=== PATIENT | female | born 1955 | race Caucasian/White ===

== ENCOUNTER → 2023-11-11 15:07 | Outpatient (REF) | payer BC, SELFPAY ==
[2023-11-20 04:08] LABS: HPV Genotype 16 Not Detected; HPV Genotype 18 Not Detected; HPV, High Risk Not Detected; HPV, High Risk Source Cervical
== END ==
LOC: CPAP 15:07
PROVIDERS: ATTENDING PHYSICIAN Obstetrics & Gynecology
DX: Z01.419 Encounter for gynecological examination (general) (routine) without abnormal findings (principal); Z11.51 Encounter for screening for human papillomavirus (HPV)
CPT/HCPCS: 87624; G0123

== ENCOUNTER → 2024-01-29 16:08 | Outpatient (REF) | payer BC, SELFPAY ==
[2024-01-29 17:30] LABS: % Basophils 0.8 % (0-2); % Immature Granulocytes 0.3 % (0-0.5); % Lymphocytes 22.5 % (20.5-51.1); % Monocytes 7.1 % (1.7-9.3); % Neutrophils 65.3 % (42.2-75.2); Absolute Basophils 0.1 10^3/uL (0-0.2); Absolute Eosinophils 0.3 10^3/uL (0-0.7); Absolute Lymphocytes 1.6 10^3/uL (1.2-3.4); Absolute Monocytes 0.5 10^3/uL (0.1-0.6); Absolute Neutrophils 4.8 10^3/uL (1.4-6.5); Hematocrit 36.5 % (37.0-47.0); Hemoglobin 11.8 g/dL (12.0-16.0); Mean Corp Hgb Conc. 32.3 g/dL (33.0-37.0); Mean Corpuscular Hgb 28.6 pg (27.0-31.0); Mean Corpuscular Volume 88.6 fL (81.0-99.0); Mean Platelet Volume 11.6 fL (7.4-10.4); Nucleated Red Blood Cells % 0 %; Platelet Count 274 10^3/uL (130-400); Red Blood Cell Count 4.12 10^6/uL (4.20-5.40); Red Cell Dist. Width 12.5 % (11.5-14.5); White Blood Cell Count 7.3 10^3/uL (4.8-10.8)
[2024-01-29 17:49] LABS: Urine Protein 29 mg/dl
[2024-01-29 17:50] LABS: Blood Urea Nitrogen 31 mg/dl (7-17); Calcium 10.2 mg/dl (8.4-10.2); Carbon Dioxide 27 mmol/L (22-30); Chloride 100 mmol/L (98-107); Glucose 102 mg/dl (70-99); Iron 80 ug/dl (37-170); Potassium 4.7 mmol/L (3.5-5.1); Sodium 135 mmol/L (135-145); eGFR 28.41
[2024-01-29 18:00] LABS: Percent Saturation 20 % (20-50); Total Iron Binding Capacity 391 ug/dl (265-497)
[2024-01-29 18:02] LABS: Protein/creatinine Ratio 0.9
[2024-01-31 09:53] LABS: Erythropoietin (EPO) 5 mU/mL (4-27)
== END ==
LOC: REG 16:08
PROVIDERS: ATTENDING PHYSICIAN Specialist; FAMILY PHYSICIAN Family Medicine
DX: N18.32 Chronic kidney disease, stage 3b (principal); Z86.39 Personal history of other endocrine, nutritional and metabolic disease
CPT/HCPCS: 36415; 80048; 82570; 82668; 82728; 83540; 83550; 84156; 85025

== ENCOUNTER → 2024-08-03 15:25 | Outpatient (REF) | payer BC, SELFPAY | LOC: WDC 15:25 | PROVIDERS: ATTENDING PHYSICIAN Family Medicine | DX: Z12.31 Encounter for screening mammogram for malignant neoplasm of breast (principal) | CPT/HCPCS: 77063; 77067 ==

== ENCOUNTER → 2025-01-26 06:20 | Outpatient (REF) | payer BC, SELFPAY ==
[2025-01-26 07:33] LABS: Hematocrit 35.2 % (37.0-47.0); Hemoglobin 11.4 g/dL (12.0-16.0)
[2025-01-26 08:05] LABS: ALT (SGPT) 13 U/L (0-35); AST (SGOT) 18 U/L (14-36); Albumin 4.8 g/dl (3.5-5.0); Alkaline Phosphatase 56 U/L (38-126); Blood Urea Nitrogen 49 mg/dl (7-17); Calcium 10.1 mg/dl (8.4-10.2); Carbon Dioxide 25 mmol/L (22-30); Chloride 101 mmol/L (98-107); Glucose 89 mg/dl (70-99); Phosphorus 4.5 mg/dl (2.5-4.5); Potassium 4.8 mmol/L (3.5-5.1); Sodium 140 mmol/L (135-145); Total Bilirubin 0.4 mg/dl (0.2-1.3); Total Protein 7.3 g/dl (6.3-8.2); eGFR 25.04
[2025-01-26 08:32] LABS: Protein/creatinine Ratio 0.4; Urine Protein 39 mg/dl
[2025-01-28 09:41] LABS: Intact PTH 40.5 pg/ml (13.6-85.8)
== END ==
LOC: REG 06:20
PROVIDERS: ATTENDING PHYSICIAN Specialist; FAMILY PHYSICIAN Family Medicine
DX: N18.32 Chronic kidney disease, stage 3b (principal)
CPT/HCPCS: 36415; 80053; 82570; 83970; 84100; 84156; 85014; 85018

== ENCOUNTER 2025-02-24 06:14 | Day surgery (SDC) | payer BC, SELFPAY | END 2025-02-24 12:10 | disposition home or self-care (01) | LOC: GI 06:14 | PROVIDERS: ATTENDING PHYSICIAN Specialist | DX: Z12.11 Encounter for screening for malignant neoplasm of colon (principal); K57.30 Diverticulosis of large intestine without perforation or abscess without bleeding; D12.0 Benign neoplasm of cecum; D12.3 Benign neoplasm of transverse colon; Z86.0101 Personal history of adenomatous and serrated colon polyps | CPT/HCPCS: 45385; 45380; 88305 ==

== ENCOUNTER → 2025-03-14 15:12 | Outpatient (REF) | payer BC, SELFPAY ==
[2025-03-14 16:04] LABS: Blood Urea Nitrogen 38 mg/dl (7-17); Calcium 10.1 mg/dl (8.4-10.2); Carbon Dioxide 25 mmol/L (22-30); Chloride 105 mmol/L (98-107); Glucose 87 mg/dl (70-99); Potassium 4.7 mmol/L (3.5-5.1); Sodium 138 mmol/L (135-145); eGFR 28.23
== END ==
LOC: REG 15:12
PROVIDERS: ATTENDING PHYSICIAN Specialist; FAMILY PHYSICIAN Family Medicine
DX: I10 Essential (primary) hypertension (principal); Z86.39 Personal history of other endocrine, nutritional and metabolic disease; N18.32 Chronic kidney disease, stage 3b
CPT/HCPCS: 36415; 80048

== ENCOUNTER → 2025-04-12 11:52 | Outpatient (REF) | payer BC, SELFPAY | LOC: CLAB 11:52 | PROVIDERS: Pathology Anatomic Pathology & Clinical Pathology; ATTENDING PHYSICIAN Physician Assistant Medical | DX: L82.1 Other seborrheic keratosis (principal) | CPT/HCPCS: 88305 ==